=== PATIENT | male | born 1985 | race Two or more races ===

== ENCOUNTER 2016-02-25 00:43 | Emergency (ER) | payer MEDICAID, OTHER ==
[~2016-02-25] VITALS: Ht 177.8 cm; Wt 99.8 kg
[~2016-02-25 00:43] MED LIST: CLINDAMYCIN HC300 MG ORAL; HYDROCODON-ACE1 EA15 ORAL; METFORMIN HCL500 M1 ORAL
[2016-02-25] MEDS ORDERED: PODOFILOX3.5 ML TP (01:55)
--- NOTE | 2016-02-25 02:06 | Emergency Room Report ---
History of Present Illness General Chief Complaint: Skin Rash/Abscess Source: Patient, Family Member Present Illness HPI 30 YO M with 5-7 days of "rash" to suprapubic area. Denies fever/chills, blistering, vesicles. Patient states mild assoc itch. Hasnt taken any OTC meds. No new soap, detergent, pets. Allergies: Coded Allergies: PENICILLINS (Verified Allergy, Unknown, 06/19/15) Patient History Past Medical History: none Past Surgical History: none Pertinent Family History: none Social History: Denies: alcohol use, drug use, smoking Immunizations: UTD Reviewed Nursing Documentation: PMH: Agreed, PSxH: Agreed Nursing Documentation-PMH Past Medical History: No History, Except For Hx Diabetes: Yes Review of Systems All Other Systems: negative except mentioned in HPI Physical Exam Vital Signs Date Time Temp Pulse Resp B/P Pulse Ox O2 Delivery O2 Flow Rate FiO2 02/25/16 01:01 98.4 72 16 114/65 95 Room Air Sp02 EP Interpretation: reviewed, normal General Appearance: normal inspection, well appearing, no apparent distress, alert Head: atraumatic ENT: normal ENT inspection, hearing grossly normal, normal voice Neck: normal inspection, full range of motion, supple, no bony tend Respiratory: normal inspection, lungs clear, normal breath sounds, no respiratory distress, no retraction, no wheezing Cardiovascular #1: regular rate, rhythm, no edema Gastrointestinal: normal inspection, normal bowel sounds, non tender, soft, no guarding, no hernia Genitourinary: no CVA tenderness Musculoskeletal: normal inspection, back normal, normal range of motion, Ar' s Sign negative Neurologic: normal inspection, alert, oriented x3, responsive, mergers and acquisitions associate III-XII nml as tested, motor strength/tone normal, speech normal Skin: normal inspection, normal color, other - 3-4 areas of raised fleshy papules in suprapubic area. No assoc erythema, vesicles or blistering Medical Decision Making Diagnostic Impression: Primary Impression: Molluscum contagiosum ER Course 30 YO F with likely molluscum contagiousum. VSS. Afebrile. No associated cellulitis/folliculitis No systemic symptoms DC with Rx Podofilx, PMD followup for Derm referral Advised to wash linens, towels Last Vital Signs Date Time Temp Pulse Resp B/P Pulse Ox O2 Delivery O2 Flow Rate FiO2 02/25/16 01:01 98.4 72 16 114/65 95 Room Air Status: improved Disposition: HOME, SELF-CARE Condition: Improved Scripts Podofilox (PODOFILOX) 3.5 Ml Solution 3.5 ML TP BID for 3 Days, UNIT Prov: MALCOM MASTERSON M.D. 02/25/16 Referrals: NOT CHOSEN [facility]/MD,REFERRING (PCP) Patient Instructions: Molluscum Contagiosum, Adult Additional Instructions: - Apply topical solution to affected area twice daily for 3 days then STOP USING FOR 4 DAYS. - You can re-do this cycle up to 4x until resolution - Follow up with your primary care doctor for a dermatology referral MALCOM MASTERSON M.D. Feb 25, 2016 02:06
[2016-02-25 02:07] VITALS: BP 122/70
[2016-02-25 02:08] VITALS: BP 114/65
== END 2016-02-25 02:08 | disposition home or self-care (01) ==
LOC: EDBD → EMR 01:16
DX: B08.1 Molluscum contagiosum (principal); E11.9 Type 2 diabetes mellitus without complications; Z88.0 Allergy status to penicillin
CPT/HCPCS: 99283

== ENCOUNTER 2016-03-28 16:57 | Emergency (ER) | payer OTHER ==
[~2016-03-28] VITALS: Ht 177.8 cm; Wt 104.3 kg
[~2016-03-28 16:57] MED LIST changes: +PODOFILOX3.5 ML TP
[2016-03-28 17:32] VITALS: BP 131/67
[2016-03-28] MEDS ORDERED: Ketorolac 30mg Inj IM ONE (17:45)
[2016-03-28] MEDS ORDERED: IBUPROFEN600 MG ORAL (18:22)
[2016-03-28 18:42] VITALS: BP 148/77
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
--- NOTE | 2016-03-29 09:59 | Diagnostic Imaging Report ---
Indications: PAIN Technique: Three views of the right knee Comparison: None Findings: No acute fractures. No dislocations. Joint spaces are preserved. No radiopaque foreign body. Normal mineralization. Impression: No acute process
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
== END 2016-03-28 18:42 | disposition home or self-care (01) ==
LOC: EDBD 17:30 → EMR 17:30
DX: S80.01XA Contusion of right knee, initial encounter (principal); E11.9 Type 2 diabetes mellitus without complications; Z88.0 Allergy status to penicillin; V43.52XA Car driver injured in collision with other type car in traffic accident, initial encounter; Y92.9 Unspecified place or not applicable; Y99.8 Other external cause status
CPT/HCPCS: 73562; 73610; 96372; 99283; J1885

== ENCOUNTER 2016-07-04 02:42 | Emergency (ER) | payer OTHER ==
[~2016-07-04] VITALS: Ht 175.3 cm; Wt 104.3 kg
[~2016-07-04 02:42] MED LIST changes: +IBUPROFEN600 MG ORAL
[2016-07-04] MEDS ORDERED: BACTROBAN15 GM TOPIC (03:14)
[2016-07-04] MEDS ORDERED: BACTRIM DS TAB1 EAC1 ORAL (03:14)
--- NOTE | 2016-07-04 03:14 | Emergency Room Report ---
History of Present Illness General Chief Complaint: Skin Rash/Abscess Source: Patient Present Illness HPI Is a 31-year-old male with no significant past medical history. He presents with chief complaint of abscess to the groin area. His been there for almost 5 days and 2 days ago it popped and drained pus. He has small abscess in the past the same area. Denies any fever chills denies any nausea vomiting. Pain is much improved now. No other complaint. Allergies: Coded Allergies: PENICILLINS (Verified Allergy, Unknown, 06/19/15) Patient History Past Medical History: see triage record, old chart reviewed Past Surgical History: other Pertinent Family History: none Social History: Denies: smoking Immunizations: other Reviewed Nursing Documentation: PMH: Agreed, PSxH: Agreed Nursing Documentation-PMH Past Medical History: No History, Except For Hx Diabetes: Yes Review of Systems Eye: Denies: blurred vision, eye pain ENT: Denies: ear pain, nose congestion, throat swelling Respiratory: Denies: cough, shortness of breath Cardiovascular: Denies: chest pain, palpitations Gastrointestinal: Denies: abdominal pain, diarrhea, nausea, vomiting Musculoskeletal: Denies: back pain, joint pain Skin: Denies: rash Neurological: Denies: headache, numbness Endocrine: Denies: increased thirst, increased urine Hematologic/Lymphatic: Denies: easy bruising All Other Systems: negative except mentioned in HPI Physical Exam Vital Signs Date Time Temp Pulse Resp B/P Pulse Ox O2 Delivery O2 Flow Rate FiO2 07/04/16 02:44 97.9 86 16 130/78 100 Room Air vitals normal Sp02 EP Interpretation: reviewed, normal General Appearance: well appearing, no apparent distress, alert Head: normocephalic, atraumatic Eyes: bilateral eye EOMI, bilateral eye PERRL ENT: hearing grossly normal, normal pharynx Neck: full range of motion, supple, no meningismus Respiratory: chest non-tender, lungs clear, normal breath sounds Cardiovascular #1: regular rate, rhythm, no murmur Gastrointestinal: normal bowel sounds, non tender, no mass, no organomegaly, no bruit, non-distended Genitourinary: other - Suprapubic area: There is an indurated area of 2 cm with necrotic center. No fluctuant. Mild erythema. Musculoskeletal: back normal, gait/station normal, normal range of motion Psychiatric: mood/affect normal Skin: warm/dry Medical Decision Making Diagnostic Impression: Primary Impression: Abscess ER Course Patient presents with a small abscess to the suprapubic area that started draining. Nothing to I&D. We'll treat with antibiotics. No deep infection. No necrotizing fasciitis. Most likely MRSA. Last Vital Signs Date Time Temp Pulse Resp B/P Pulse Ox O2 Delivery O2 Flow Rate FiO2 07/04/16 02:44 97.9 86 16 130/78 100 Room Air Status: improved Disposition: HOME, SELF-CARE Condition: Stable Scripts Mupirocin (BACTROBAN CR) 15 Gm Cream..g. 1 APPLIC TOPIC THREE TIMES A DAY, #15 GM Prov: ZOILA HUSSEIN M.D. 07/04/16 Trimethoprim/Sulfamethoxazole 160/800* (BACTRIM DS TABLET*) 1 Each Tablet 1 TAB ORAL Q12H, #14 TAB 0 Refills Prov: ZOILA HUSSEIN M.D. 07/04/16 Referrals: [facility],REFER (PCP) Additional Instructions: Followup with your in 3-5 days for recheck. Return if symptom worsen. ZOILA HUSSEIN M.D. July 04, 2016 03:14
[2016-07-04] MEDS ORDERED: Bactrim DS (160mg/800mg) tab ORAL ONE (03:15)
[2016-07-04 03:16] VITALS: BP 131/82
== END 2016-07-04 03:19 | disposition home or self-care (01) ==
LOC: EMR 03:06
DX: L02.219 Cutaneous abscess of trunk, unspecified (principal); E11.9 Type 2 diabetes mellitus without complications; Z88.0 Allergy status to penicillin
CPT/HCPCS: 99284

== ENCOUNTER 2016-11-04 18:39 | Emergency (ER) | payer OTHER ==
[~2016-11-04] VITALS: Ht 175.3 cm; Wt 108.9 kg
[~2016-11-04 18:39] MED LIST changes: +BACTRIM DS TAB1 EAC1 ORAL; +BACTROBAN15 GM TOPIC
[2016-11-04 19:15] VITALS: BP 147/90
[2016-11-04] MEDS ORDERED: Norco 7.5mg/325mg tab ORAL ONE (19:15)
[2016-11-04] MEDS ORDERED: CLINDAMYCIN HC150 MG ORAL (19:58)
[2016-11-04] MEDS ORDERED: NORCO 5-325 TA1 EAC1 ORAL (19:58)
[2016-11-04 20:05] VITALS: BP 147/90
--- NOTE | 2016-11-04 21:10 | Emergency Room Report ---
History of Present Illness General Chief Complaint: Toothache Source: Patient Present Illness HPI The patient is a 31-year-old male presenting for dental pain. He states that he woke this morning with extreme pain to the left upper jaw. Pain is now 7/10 sharp sensation it is worse with chewing. It does not radiate. He states that he went to see a dentist who quoted him thousands of dollars for tooth extraction. He declined. He has tried Motrin at home which slightly helped. He denies any other symptoms including F, chills, sore throat, cough, CP, SOB, [place], dizziness, blurred vision Allergies: Coded Allergies: PENICILLINS (Verified Allergy, Unknown, 06/19/15) Patient History Past Medical History: see triage record Pertinent Family History: none Reviewed Nursing Documentation: PMH: Agreed, PSxH: Agreed Nursing Documentation-PMH Past Medical History: No History, Except For Hx Diabetes: Yes Review of Systems All Other Systems: negative except mentioned in HPI Physical Exam Vital Signs Date Time Temp Pulse Resp B/P (MAP) Pulse Ox O2 Delivery O2 Flow Rate FiO2 11/04/16 18:46 97.9 79 18 147/90 98 Room Air Sp02 EP Interpretation: reviewed, normal General Appearance: no apparent distress, alert, GCS 15, non-toxic Head: normocephalic, atraumatic Eyes: bilateral eye normal inspection, bilateral eye PERRL ENT: hearing grossly normal, no angioedema, normal voice, other - TTP over the L upper molars Neck: full range of motion, supple/symm/no masses Respiratory: chest non-tender, lungs clear, normal breath sounds, speaking full sentences Cardiovascular #1: regular rate, rhythm, no edema Musculoskeletal: back normal, gait/station normal, normal range of motion, non- tender Neurologic: alert, oriented x3, responsive, motor strength/tone normal, sensory intact, speech normal Psychiatric: judgement/insight normal, memory normal, mood/affect normal, no suicidal/homicidal ideation Skin: normal color, no rash, warm/dry, well hydrated Medical Decision Making PA Attestation Dr. Pierson is my supervising physician. Patient management was discussed with my supervising physician Diagnostic Impression: Primary Impression: Dental infection ER Course The patient is a 31-year-old male presenting for dental pain. Diagnoses considered but not limited to: Dental guido, dental abscess, toothache , gingivitis, among others PE: Afebrile. NAD TTP over the L upper molars with slight L facial edema. No abscess seen. CT facial bones shows no acute findings. He is given pain medication and clindamycin as he has PCN allergy. he will see dentist tomorrow. Low cost clinic information provided. ER precautions given CT/MRI/US Diagnostic Results CT/MRI/US Diagnostic Results : Imaging Test Ordered: CT facial bones Impression No acute findings Last Vital Signs Date Time Temp Pulse Resp B/P (MAP) Pulse Ox O2 Delivery O2 Flow Rate FiO2 11/04/16 20:05 97.9 18 147/90 98 Room Air 11/04/16 18:46 79 Status: improved Disposition: HOME, SELF-CARE Condition: Improved Scripts Hydrocodone Bit/Acetaminophen 5-325* (NORCO 5-325 TABLET*) 1 Each Tablet 1 TAB ORAL Q6HR Y for For Pain, #10 TAB Prov: JENIFER RANDLE 11/04/16 Clindamycin Hcl* (CLINDAMYCIN HCL*) 150 Mg Capsule 300 MG ORAL TID for 7 Days, CAP Prov: JENIFER RANDLE.Allie. 11/04/16 Patient Instructions: Dental Pain, Dental Abscess Additional Instructions: I discussed my findings with the patient. All questions and concerns have been answered. Treatment and medication compliance have been addressed. Return to ED if symptoms worsen, new symptoms arise, or if needed for any reason. Patient verbalized understanding of discharge instructions. The patient will followup with dentist tomorrow as instructed. JENIFER RANDLE Nov 04, 2016 21:10
--- NOTE | 2016-11-05 08:28 | Diagnostic Imaging Report ---
Indications: PAIN Technique: Spiral images obtained through the facial bones. No IV contrast utilized. Multiplanar reconstructions were generated.Total dose length product 640 mGycm. CTDIvol(s) 28mGy. Dose reduction achieved using automated exposure control Comparison: None Findings: No acute fractures. No worrisome sinus air-fluid levels. There is some mucosal thickening of the left maxillary sinus. The optic globes and retroseptal orbits are intact. There is very slight leftward nasal septal deviation. The maxillary ostia are patent. The retrotracheal soft tissues are unremarkable. There is some image degradation due to streak artifact from dental amalgam Impression: Left maxillary sinus disease Otherwise unremarkable This agrees with the preliminary interpretation provided overnight by [facility] teleradiology service. The CT scanner at [facility] is accredited by the [employer] and the scans are performed using protocols designed to limit radiation exposure to as low as reasonably achievable to attain images of sufficient resolution adequate for diagnostic evaluation.
== END 2016-11-04 20:05 | disposition home or self-care (01) ==
LOC: EMR 19:00
DX: K02.9 Dental caries, unspecified (principal); E11.9 Type 2 diabetes mellitus without complications; Z88.0 Allergy status to penicillin; J32.0 Chronic maxillary sinusitis
CPT/HCPCS: 70486; 99284

== ENCOUNTER 2018-05-27 00:46 | Emergency (ER) | payer SELFPAY ==
[~2018-05-27] VITALS: Ht 175.3 cm; Wt 109.8 kg
[~2018-05-27 00:46] MED LIST changes: +CLINDAMYCIN HC150 MG ORAL; +NORCO 5-325 TA1 EAC1 ORAL
[2018-05-27 01:04] VITALS: BP 137/77
--- NOTE | 2018-05-27 01:15 | NUR ---
ED Nurse Note: Patient presents to ED c/o high blood sugar and migraine. Patient BS is 235. Patient states he takes metformin and was taking 500mg BID instead of 1000mg BID due to a medication error by the pharmacy. Patient reports 9/10 headache. Patient AOx4, VSS, ambulatory with steady gait, no s/s of acute distress noted at this time. Patient seen by ERMD at bedside.
[2018-05-27 01:23] LABS: BASOPHILS % (AUTO) 0.9 % (0.0-2.0); EOSINOPHILS % (AUTO) 0.2 % (0.0-3.0); HEMATOCRIT 45.9 % (42.0-52.0); HEMOGLOBIN 16.4 G/DL (14.2-18.0); LYMPHOCYTES % (AUTO) 9.6 % (20.0-45.0); MEAN CORPUSCULAR VOLUME 81 FL (80-99); MONOCYTES % (AUTO) 4.6 % (1.0-10.0); NEUTROPHILS % (AUTO) 84.8 % (45.0-75.0); PLATELET COUNT 143 K/UL (150-450); RED BLOOD COUNT 5.64 M/UL (4.70-6.10); RED CELL DISTRIBUTION WIDTH 11.7 % (11.6-14.8); WHITE BLOOD COUNT 8.2 K/UL (4.8-10.8)
[2018-05-27 01:30] LABS: APPEARANCE,URINE CLEAR; BILIRUBIN, URINE NEGATIVE (NEGATIVE); GLUCOSE, URINE (UA) 3+ (NEGATIVE); KETONES,URINE 4+ (NEGATIVE); LEUKOCYTE ESTERASE ,URINE 1+ (NEGATIVE); NITRITE,URINE NEGATIVE (NEGATIVE); PH,URINE 5 (4.5-8.0); PROTEIN,URINE 2+ (NEGATIVE); UROBILINOGEN,URINE 1 MG/DL (0.0-1.0)
[2018-05-27] MEDS ORDERED: Ketorolac 30mg Inj IV ONE (01:30)
[2018-05-27 01:31] LABS: ANION GAP 10 mmol/L (5-15); BLOOD UREA NITROGEN 11 mg/dL (7-18); CALCIUM 9.3 MG/DL (8.5-10.1); CARBON DIOXIDE 26 MMOL/L (21-32); CHLORIDE 100 MMOL/L (98-107); CREATININE 1.1 MG/DL (0.55-1.30); POTASSIUM 3.7 MMOL/L (3.5-5.1); SODIUM 136 MMOL/L (136-145)
[2018-05-27 01:34] LABS: COLOR,URINE YELLOW
--- NOTE | 2018-05-27 01:45 | Emergency Room Report ---
History of Present Illness General Chief Complaint: General Complaint Source: Patient Present Illness HPI This is a 33-year-old male with history of type 2 diabetes on metformin. He is postictal thousand milligrams twice a day. He get his refill and was only 500 mg. He was able to get another prescription for thousand milligrams. He was not able to take it because he started vomiting today. Several episode vomiting. Nonbloody nonbilious. Also with headache. [place] weak. Denies any fever or chills. Denies any diarrhea. Has cramping pain. Nothing made it better. Eating made it worse. Allergies: Coded Allergies: PENICILLINS (Verified Allergy, Unknown, 05/27/18) Patient History Past Medical History: see triage record, old chart reviewed, DM Past Surgical History: none Pertinent Family History: none Social History: Denies: smoking Immunizations: other Reviewed Nursing Documentation: PMH: Agreed; PSxH: Agreed Nursing Documentation-PMH Hx Diabetes: Yes Review of Systems Eye: Denies: eye pain, blurred vision ENT: Denies: ear pain, nose congestion, throat swelling Respiratory: Denies: cough, shortness of breath Cardiovascular: Denies: chest pain, palpitations Gastrointestinal: Reports: abdominal pain, nausea, vomiting; Denies: diarrhea Musculoskeletal: Denies: back pain, joint pain Skin: Denies: rash Neurological: Reports: headache; Denies: numbness Endocrine: Denies: increased thirst, increased urine Hematologic/Lymphatic: Denies: easy bruising All Other Systems: negative except mentioned in HPI Physical Exam Vital Signs Date Time Temp Pulse Resp B/P (MAP) Pulse Ox O2 Delivery O2 Flow Rate FiO2 05/27/18 00:48 98.2 96 18 137/77 98 Room Air vitals normal Sp02 EP Interpretation: reviewed, normal General Appearance: well appearing, no apparent distress, alert Head: normocephalic, atraumatic Eyes: bilateral eye PERRL, bilateral eye EOMI ENT: hearing grossly normal, normal pharynx Neck: full range of motion, supple, no meningismus Respiratory: chest non-tender, lungs clear, normal breath sounds Cardiovascular #1: regular rate, rhythm, no murmur Gastrointestinal: normal bowel sounds, non tender, no mass, no organomegaly, no bruit, non-distended Musculoskeletal: back normal, gait/station normal, normal range of motion Psychiatric: mood/affect normal Skin: warm/dry Medical Decision Making Diagnostic Impression: Primary Impression: Hyperglycemia due to type 2 diabetes mellitus Qualified Codes: E11.65 - Type 2 diabetes mellitus with hyperglycemia Additional Impression: Nausea & vomiting Qualified Codes: R11.2 - Nausea with vomiting, unspecified ER Course Patient with hypoglycemia. This probably secondary to vomiting unable to give down any of his metformin. No evidence of DKA. He felt better now. We'll discharge home. Lab Results Impression labs with hyperglycemia Last Vital Signs Date Time Temp Pulse Resp B/P (MAP) Pulse Ox O2 Delivery O2 Flow Rate FiO2 05/27/18 01:39 98.2 05/27/18 01:04 96 18 Room Air 05/27/18 01:04 137/77 98 Status: improved Disposition: HOME, SELF-CARE Condition: Stable Scripts Ondansetron (Zofran) 4 Mg Tablet 4 MG ORAL Q6H PRN for Nausea & Vomiting, #10 TAB 0 Refills Prov: Marquis Resendiz MD 05/27/18 Referrals: NOT CHOSEN [facility]/,REFERRING (PCP) Additional Instructions: Follow-up with your doctor in 2-3 days if not better. Return if worse. Marquis Resendiz MD May 27, 2018 01:45
[2018-05-27] MEDS ORDERED: ZOFRAN4 MG ORAL (02:41)
[2018-05-27 02:45] VITALS: BP 123/69
--- NOTE | 2018-05-27 02:45 | NUR ---
ED Nurse Note: Patient cleared for discharge by ERMRosmery. Patient AOx4, VSS, ambulatory with steady gait, no s/s of acute distress noted at this time. patient provided with discharge instructions and medication prescriptions. patient verbalized understanding. patient ID band and IV access removed. patient took all personal belongings with him. Patient has friend at bedside to take him home. Patient instructed to follow up with PCP in 2-3 days.
== END 2018-05-27 02:45 | disposition home or self-care (01) ==
LOC: EMR 01:12
DX: E11.65 Type 2 diabetes mellitus with hyperglycemia (principal); R11.2 Nausea with vomiting, unspecified; Z79.84 Long term (current) use of oral hypoglycemic drugs; Z88.0 Allergy status to penicillin
CPT/HCPCS: 36415; 80048; 81001; 85025; 96361; 96374; 96375; 96376; 99284; J1885; J2405